=== PATIENT | female | born 1980 | race Caucasian/White ===

== ENCOUNTER 2024-11-08 14:30 | Emergency (ER) | payer OTHER ==
--- NOTE | 2024-11-08 15:50 | ED ---
Abdominal Pain HPI - General Source: patient, RN notes reviewed Mode of arrival: wheelchair Limitations: no limitations <Lyssa Lo - Last Filed: 11/08/24 15:48> <Angelica Carroll - Last Filed: 11/14/24 18:20> - General Chief Complaint: Abdominal Pain Stated Complaint: Jaundice, abd pain Time Seen by Provider: 11/08/24 15:48 - History of Present Illness Initial Comments: Quick [id number] female sent from [facility] for liver failure. Patient states she has been having diffuse abdominal pain and bloating. (Lyssa Lo) 44-year-old female presents to the emergency department for evaluation of abdominal pain. Patient reports that she has been experiencing abdominal pain for 1 to 2 weeks. She notes that the pain is diffuse in the abdomen. She admits to bloating. She reports abdominal liver disease. She states that she has had to have fluid drained off her abdomen in the past. Patient reports that over the past few days she has noticed yellowing of her skin and eyes. Denies recent fever, chills. Notes decrease urine output. (Angelica Carroll) - Related Data Allergies Allergy/AdvReac Type Severity Reaction Status Date / Time sumatriptan [From Imitrex] Allergy Mild Dyspnea Verified 11/08/24 14:38 Review of Systems ROS Other: All systems not noted in ROS Statement are negative. <Lyssa Lo - Last Filed: 11/08/24 15:48> ROS Other: All systems not noted in ROS Statement are negative. <Angelica Carroll - Last Filed: 11/14/24 18:20> ROS Statement: Those systems with pertinent positive or pertinent negative responses have been documented in the HPI. Past Medical History Smoking Status: Current every day smoker Past Alcohol Use History: Heavy Past Drug Use History: Marijuana <Lyssa Lo - Last Filed: 11/08/24 15:48> General Exam Limitations: no limitations <Lyssa Lo - Last Filed: 11/08/24 15:48> Limitations: no limitations General appearance: alert, in no apparent distress Head exam: Present: atraumatic, normocephalic, normal inspection Eye exam: Present: scleral icterus ENT exam: Present: normal exam, mucous membranes moist Respiratory exam: Present: normal lung sounds bilaterally. Absent: respiratory distress, wheezes, rales, rhonchi, stridor Cardiovascular Exam: Present: regular rate, normal rhythm, normal heart sounds. Absent: systolic murmur, diastolic murmur, rubs, gallop, clicks GI/Abdominal exam: Present: soft, tenderness. Absent: guarding, rebound, rigid Extremities exam: Present: normal inspection, full ROM, normal capillary refill. Absent: tenderness, pedal edema, joint swelling, calf tenderness Back exam: Present: normal inspection Neurological exam: Present: alert, oriented X3 Psychiatric exam: Present: normal affect, normal mood Skin exam: Present: warm, dry, intact, other (Jaundice). Absent: normal color, rash <Angelica Carroll - Last Filed: 11/14/24 18:20> - General Exam Comments Initial Comments: Visual Physical Exam Vital signs reviewed General: Well-appearing, nontoxic, no acute distress. Head: Normocephalic, atraumatic Eyes: PERRLA, EOMI ENT: Airway patent Chest: Nonlabored breathing Skin: No visual rash, normal skin tone Neuro: Alert and oriented 3 Musculoskeletal: No gross abnormalities (Lyssa Lo) Course Vital Signs 11/08/24 11/08/24 11/09/24 14:36 20:47 00:27 Temperature 98.1 F 98.1 F 98.3 F Pulse Rate 89 83 83 Respiratory 18 16 18 Rate Blood Pressure 102/65 105/69 104/90 O2 Sat by Pulse 100 98 97 Oximetry Medical Decision Making <Lyssa Lo - Last Filed: 11/08/24 15:48> - Lab Data Result diagrams: 11/08/24 17:13 11/08/24 17:13 <Angelica Carroll - Last Filed: 11/14/24 18:20> - Medical Decision Making I completed the quick note portion of this chart signed Lyssa Lo PA-C (Lyssa Lo) Was pt. sent in by a medical professional or institution ([facility]OV[facility] Pathak, [employer], urgent care, hospital, or senior living...) When possible be specific @ -[facility] Did you speak to anyone other than the patient for history (EMS, parent, family, police, friend...)? What history was obtained from this source @ -No Did you review nursing and triage notes (agree or disagree)? Why? @ -I reviewed and agree with nursing and triage notes Were old charts reviewed (outside hosp., previous admission, EMS record, old EKG, old radiological studies, urgent care reports/EKG's, senior living records)? Report findings @ -No old charts were reviewed Differential Diagnosis (chest pain, altered mental status, abdominal pain women, abdominal pain men, vaginal bleeding, weakness, fever, dyspnea, syncope, headache, dizziness, GI bleed, back pain, seizure, CVA, palpatations, mental health, musculoskeletal)? @ -Differential Abdominal Pain Women: Appendicitis, Cholecystitis, diverticulosis, ischemic bowel, pancreatitis, hepatitis, UTI, gastroenteritis, AAA, incarcerated hernia, bowel obstruction, constipation, inflammatory bowel, hepatitis, peptic ulcer disease, splenic infarction, perforated viscus, vulvitis, ovarian torsion, PID, kidney stone, placenta abruption, this is not meant to be an all-inclusive list EKG interpreted by me (3pts min.). @ -EKG at [id number], MA 115, QRS 23, MA QTc [id number] X-rays interpreted by me (1pt min.). @ -None done CT interpreted by me (1pt min.). @ -CT abdomen pelvis shows Cirrhotic liver evidence of portal venous hypertensi on, mild to moderate ascites greatest in the pelvis U/S interpreted by me (1pt. min.). @ -None done What testing was considered but not performed or refused? (CT, X-rays, U/S, labs)? Why? @ -None What meds were considered but not given or refused? Why? @ -None Did you discuss the management of the patient with other professionals (professionals i.e. , PA, [employer], lab, RT, psych nurse, clinical social work therapist, division commander, teacher, medical laboratory technical officer, case preparer and liner)? Give summary @ -Management discussed with Dr. Ochoa at [facility] who is accepting of the transfer Was smoking cessation discussed for >3mins.? @ -No Was critical care preformed (if so, how long)? @ -No Were there social determinants of health that impacted care today? How? (Homelessness, low income, unemployed, alcoholism, drug addiction, transportation, low edu. Level, literacy, decrease access to med. care, longterm, rehab)? @ -No Was there de-escalation of care discussed even if they declined (Discuss DNR or withdrawal of care, Hospice)? DNR status @ -No What co-morbidities impacted this encounter? (DM, HTN, Smoking, COPD, CAD, Ca ncer, CVA, ARF, Chemo, Hep., AIDS, mental health diagnosis, sleep apnea, morbid obesity)? @ -Alcoholism Was patient admitted / discharged? Hospital course, mention meds given and route, prescriptions, significant lab abnormalities, going to OR and other pertinent info. @ -Transferred patient presented emergency department for evaluation of abdominal pain and jaundice. Patient reports trauma past 2 days. Laboratory studies obtained significant for leukocytosis of 16.2 Mildly elevated coagulat ion studies. Elevated bilirubin at 10.7. AST 229, ALT 75, lipase 640. CT abdomen pelvis was obtained which shows a cirrhotic liver with hepatic hypertension, mild to moderate ascitic fluid in the intraperitoneal space. Patient necessitating GI services which is not available to us at this time. Patient will be transferred to facility with GI services. Case discussed with Dr. Ochoa at [facility] who is accepting of transfer. Case discussed with Dr. Go Undiagnosed new problem with uncertain prognosis? @ -No Drug Therapy requiring intensive monitoring for toxicity (Heparin, Nitro, Insulin, Cardizem)? @ -No Were any procedures done? @ -No Diagnosis/symptom? @ -Cirrhosis of the liver, acute jaundice, ascites Acute, or Chronic, or Acute on Chronic? @ -Acute Uncomplicated (without systemic symptoms) or Complicated (systemic symptoms)? @ -Complicated Side effects of treatment? @ -No Exacerbation, Progression, or Severe Exacerbation? @ -No Poses a threat to life or bodily function? How? (Chest pain, USA, CT, pneumonia, PE, COPD, DKA, ARF, appy, cholecystitis, CVA, Diverticulitis, Homicidal, Suicidal, threat to staff... and all critical care pts) @ -Moderate (Angelica Carroll) - Lab Data Lab Results 11/08/24 11/08/24 11/08/24 Range/Units 17:13 17:13 17:13 WBC 16.2 H (3.8-10.6) k/uL RBC 3.08 L (3.80-5.40) m/uL Hgb 10.4 L (11.4-16.0) gm/dL Hct 31.7 L (34.0-46.0) % MCV 102.9 H (80.0-100.0) fL MCH 33.7 (25.0-35.0) pg MCHC 32.8 (31.0-37.0) g/dL RDW 20.2 H (11.5-15.5) % Plt Count 249 (150-450) k/uL MPV 6.9 Neutrophils % 82 % Lymphocytes % 8 % Monocytes % 8 % Eosinophils % 1 % Basophils % 0 % Neutrophils # 13.2 H (1.3-7.7) k/uL Lymphocytes # 1.2 (1.0-4.8) k/uL Monocytes # 1.3 H (0-1.0) k/uL Eosinophils # 0.2 (0-0.7) k/uL Basophils # 0.0 (0-0.2) k/uL Manual Slide Review Performed Hypochromasia Slight Anisocytosis Moderate Macrocytosis Marked A PT (10.0-12.5) sec INR (<1.2) APTT (22.0-30.0) sec Sodium 130 L (137-145) mmol/L Potassium 3.6 (3.5-5.1) mmol/L Chloride 94 L (98-107) mmol/L Carbon Dioxide 22 (22-30) mmol/L Anion Gap 14 mmol/L BUN 5 L (7-17) mg/dL Creatinine 0.47 L (0.52-1.04) mg/dL Est GFR (CKD-EPI)AfAm >90 (>60 ml/min/1.73 sqM) Est GFR (CKD-EPI)NonAf >90 (>60 ml/min/1.73 sqM) Glucose 103 H (74-99) mg/dL Plasma Lactic Acid Peter 2.0 (0.7-2.0) mmol/L Calcium 8.1 L (8.4-10.2) mg/dL Total Bilirubin 10.7 H (0.2-1.3) mg/dL Conjugated Bilirubin (0.0-0.3) mg/dL Unconjugated Bilirubin (0.0-1.1) mg/dL Delta Bilirubin (0.0-0.2) mg/dL AST 229 H (14-36) U/L ALT 75 H (4-34) U/L Alkaline Phosphatase 112 (38-126) U/L Ammonia 24 (<30) umol/L Total Protein 7.8 (6.3-8.2) g/dL Albumin 3.6 (3.5-5.0) g/dL Lipase 640 H (23-300) U/L Serum Alcohol <10 mg/dL 11/08/24 11/08/24 Range/Units 17:13 22:04 WBC (3.8-10.6) k/uL RBC (3.80-5.40) m/uL Hgb (11.4-16.0) gm/dL Hct (34.0-46.0) % MCV (80.0-100.0) fL MCH (25.0-35.0) pg MCHC (31.0-37.0) g/dL RDW (11.5-15.5) % Plt Count (150-450) k/uL MPV Neutrophils % % Lymphocytes % % Monocytes % % Eosinophils % % Basophils % % Neutrophils # (1.3-7.7) k/uL Lymphocytes # (1.0-4.8) k/uL Monocytes # (0-1.0) k/uL Eosinophils # (0-0.7) k/uL Basophils # (0-0.2) k/uL Manual Slide Review Hypochromasia Anisocytosis Macrocytosis PT 18.3 H (10.0-12.5) sec INR 1.8 H (<1.2) APTT 31.6 H (22.0-30.0) sec Sodium (137-145) mmol/L Potassium (3.5-5.1) mmol/L Chloride (98-107) mmol/L Carbon Dioxide (22-30) mmol/L Anion Gap mmol/L BUN (7-17) mg/dL Creatinine (0.52-1.04) mg/dL Est GFR (CKD-EPI)AfAm (>60 ml/min/1.73 sqM) Est GFR (CKD-EPI)NonAf (>60 ml/min/1.73 sqM) Glucose (74-99) mg/dL Plasma Lactic Acid Peter (0.7-2.0) mmol/L Calcium (8.4-10.2) mg/dL Total Bilirubin 9.5 H (0.2-1.3) mg/dL Conjugated Bilirubin 2.3 H (0.0-0.3) mg/dL Unconjugated Bilirubin 3.4 H (0.0-1.1) mg/dL Delta Bilirubin 3.8 H (0.0-0.2) mg/dL AST (14-36) U/L ALT (4-34) U/L Alkaline Phosphatase (38-126) U/L Ammonia (<30) umol/L Total Protein (6.3-8.2) g/dL Albumin (3.5-5.0) g/dL Lipase (23-300) U/L Serum Alcohol mg/dL Disposition <Lyssa Lo - Last Filed: 11/08/24 15:48> Is patient prescribed a controlled substance at d/c from ED?: No - Out of Hospital Transfer - Req. Specs Out of Hospital Transfer - Requested Specifics: Other Emergency Center ([facility]) <Angelica Carroll - Last Filed: 11/14/24 18:20> Clinical Impression: Jaundice, Alcoholism, Liver disease Disposition: OTHER INSTITUTION NOT DEFINED Condition: Stable Referrals: [facility] [NON-STAFF] - 1-2 days [facility] [NON-STAFF] - 1-2 days None,Stated [Primary Care Provider] - 1-2 days Forms: Area PCPs
[2024-11-08 17:25] LABS: Anisocytosis Moderate; Basophils % (A) 0 %; Eosinophils # (A) 0.2 k/uL (0-0.7); Eosinophils % (A) 1 %; HCT 31.7 % (34.0-46.0); HGB 10.4 gm/dL (11.4-16.0); Hypochromasia Slight; Lymphocytes # (A) 1.2 k/uL (1.0-4.8); Lymphocytes % (A) 8 %; MCH 33.7 pg (25.0-35.0); MCHC 32.8 g/dL (31.0-37.0); MCV 102.9 fL (80.0-100.0); Macrocytosis Marked; Mean Platelet Volume 6.9; Monocytes # (A) 1.3 k/uL (0-1.0); Monocytes % (A) 8 %; Neutrophils # (A) 13.2 k/uL (1.3-7.7); Neutrophils % (A) 82 %; Platelet Count 249 k/uL (150-450); RBC 3.08 m/uL (3.80-5.40); RDW 20.2 % (11.5-15.5); WBC 16.2 k/uL (3.8-10.6)
[2024-11-08 17:45] LABS: INR 1.8 (<1.2); Partial Thromboplastin Time 31.6 sec (22.0-30.0); Prothrombin Time 18.3 sec (10.0-12.5)
[2024-11-08 17:51] LABS: ALT 75 U/L (4-34); African American GFR (CKD) >90 (>60 ml/min/1.73 sqM); Albumin 3.6 g/dL (3.5-5.0); Alcohol <10 mg/dL; Anion Gap 14 mmol/L; Blood Urea Nitrogen 5 mg/dL (7-17); Calcium 8.1 mg/dL (8.4-10.2); Carbon Dioxide 22 mmol/L (22-30); Chloride 94 mmol/L (98-107); Glucose 103 mg/dL (74-99); Lipase 640 U/L (23-300); Non-African American GFR(CKD) >90 (>60 ml/min/1.73 sqM); Sodium 130 mmol/L (137-145); Total Bilirubin 10.7 mg/dL (0.2-1.3); Total Protein 7.8 g/dL (6.3-8.2)
[2024-11-08 17:55] LABS: AST 229 U/L (14-36); Alkaline Phosphatase 112 U/L (38-126); Potassium 3.6 mmol/L (3.5-5.1)
[2024-11-08 20:48] VITALS: PULSE 83
[2024-11-08] MEDS: NICOTINE 21MG/24HR PATCH TRANSDERM STA (22:22)
--- NOTE | 2024-11-08 22:23 | CT ---
EXAMINATION TYPE: CT abdomen pelvis w con DATE OF EXAM: 11/08/2024 HISTORY: Jaundice and liver failure. Went to [place] for treatment and they sent her here for a workup. Drinks liquor. CT DLP: 618.4mGycm Automated Exposure Control for Dose Reduction was Utilized. CONTRAST: CT scan of the abdomen and pelvis is performed with IV Contrast, patient injected with 100ML mL of Is ovue 300. COMPARISON: None. FINDINGS: LUNG BASES: No significant abnormality is appreciated. LIVER/GB: Hepatomegaly with liver diffusely heterogeneously hypodense. Nodular peripheral contour wit h some adjacent ascites and recanalized umbilical vein. There are 2 peripheral round hypodense lesion s measuring near 1.0 cm felt to reflect simple thin-walled cysts. Tortuous but patent portal vein. Pa tent hepatic veins draining into IVC. PANCREAS: No significant abnormality is seen. SPLEEN: Normal in size. ADRENALS: No significant abnormality is seen. KIDNEYS: No significant abnormality is seen. BOWEL: Suboptimal evaluation without enteric contrast. No abnormal dilatation is seen. Areas of mild to moderate wall thickening or persistent product of underlying hepatocellular disease. UTERUS/ADNEXA: Anteverted uterus. LYMPH NODES: No greater than 1cm abdominal or pelvic lymph nodes are appreciated. OSSEOUS STRUCTURES: Mild to moderate anterior spurring at L3-L4 level.. OTHER: [id number] amount of ascites greatest in the pelvis. 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 IMPRESSION: Cirrhotic liver with evidence of portal venous hypertension and noted mild to moderate in traperitoneal ascites greatest in the pelvis. [facility], , 11/08/2024 10:21 PM
[2024-11-08] MEDS: ONDANSETRON 4 MG/2 ML VIAL IVP STA (22:29)
[2024-11-08] MEDS ORDERED: LORazepam 2 MG/ML INJ IV PRN ×3 (22:43)
[2024-11-08] MEDS ORDERED: LORazepam 1 MG TAB PO PRN ×4 (22:43)
[2024-11-08] MEDS ORDERED: LORazepam 0.5 MG TAB PO PRN (22:43)
[2024-11-08 22:54] LABS: Bilirubin, Conjugated 2.3 mg/dL (0.0-0.3); Bilirubin, Delta 3.8 mg/dL (0.0-0.2); Bilirubin,Unconjugated 3.4 mg/dL (0.0-1.1); Total Bilirubin 9.5 mg/dL (0.2-1.3)
[2024-11-08] MEDS: SODIUM CHLORIDE 0.9% 500 ML 500 ML IV ONE (22:56)
[2024-11-08] MEDS: KETOROLAC 15 MG/ML 1 ML VIAL IVP STA (22:56)
[2024-11-09 00:28] VITALS: BP 104/90; RESP 18; TEMP 98.3
== END 2024-11-09 00:28 | disposition other institution (70) ==
LOC: EC 14:30
DX: K74.60 Unspecified cirrhosis of liver (principal); F10.20 Alcohol dependence, uncomplicated; R18.8 Other ascites; F17.200 Nicotine dependence, unspecified, uncomplicated; Z88.8 Allergy status to other drugs, medicaments and biological substances; Y90.0 Blood alcohol level of less than 20 mg/100 ml
CPT/HCPCS: 36415; 93005; 80053; 82140; 82248; 83605; 83690; 85025; 85610; 85730; 74177; 99285; 96374; 96375; 96361; G0480; S4990; J2405; J1885; Q9967; 80320